=== PATIENT | male | born 1935 | race Caucasian/White ===

== ENCOUNTER 2016-06-19 08:38 | Observation (INO) | payer MEDICARE, OTHER ==
[~2016-06-19] VITALS: Ht 162.6 cm; Wt 76.5 kg
[2016-06-19] VITALS (13 sets, daily range): BP systolic 129–163; BP diastolic 62–125; PULSE 45–62; RESP 11–19; Ht 162.6 cm; Wt 76.5 kg
[~2016-06-19 08:38] MED LIST: AMLO5TAB4 PO; ASPI81TA3 PO; ATOR10TA65 PO; CLOP75TA27 PO; CORE20CR PO; EZET10TA3 PO; LOSA100T47 PO; UBIQ75CA PO
[2016-06-19] MEDS ORDERED: CORE10CR PO (09:31)
[2016-06-19] MEDS ORDERED: SOD CHLORIDE 0.9% 1,000 ML IV SCH ×2 (10:00→14:49)
[2016-06-19 10:17] LABS: ADD SCAN DIFF NO
[2016-06-19 10:24] LABS: BASOPHILS % 0.6 % (0.0-2.0); EOSINOPHILS # 0.1 10^3/ul (0.0-0.5); EOSINOPHILS % 1.8 % (0.0-7.0); HEMATOCRIT 41.5 % (42.0-52.0); HEMOGLOBIN 13.7 g/dl (14.0-18.0); LYMPHOCYTES # 1.6 10^3/ul (0.8-2.9); MEAN CORPUSCULAR HEMOGLOBIN 29.5 pg (29.0-33.0); MEAN CORPUSCULAR VOLUME 89.2 fl (82.0-101.0); MONOCYTE # 0.7 10^3/ul (0.3-0.9); MONOCYTES % 9.8 % (0.0-11.0); NEUTROPHIL # 4.6 10^3/ul (1.6-7.5); NEUTROPHILS % 64.5 % (39.0-77.0); PLATELET COUNT 178 10^3/UL (140-415); RED BLOOD COUNT 4.65 10^6/ul (4.70-6.10); RED CELL DISTRIBUTION WIDTH 13.2 % (11.5-14.5); WHITE BLOOD COUNT 7.1 10^3/ul (4.8-10.8)
[2016-06-19 10:29] LABS: ALBUMIN 4.1 g/dl (3.3-4.9)
[2016-06-19 10:32] LABS: ALBUMIN/GLOBULIN RATIO 1.17; BILIRUBIN,INDIRECT 0.2 mg/dl (0-1.1); BILIRUBIN,TOTAL 0.2 mg/dl (0.2-1.3); TOTAL PROTEIN 7.6 g/dl (6.1-8.1)
[2016-06-19 10:33] LABS: CHOL/HDL RATIO 2.1 RATIO
[2016-06-19 10:34] LABS: INR 1.02; PROTIME 13.4 Sec (12.2-14.2)
[2016-06-19 10:35] LABS: CALCIUM 9.7 mg/dl (8.4-10.2); CREATININE 0.83 mg/dl (0.61-1.24); PARTIAL THROMBOPLASTIN TIME 26.5 Sec (25.0-35.0); POTASSIUM 4.1 mmol/L (3.5-5.1)
[2016-06-19] MEDS ORDERED: MIDAZOLAM 1 MG/ML 2 ML INJ ONE (12:14)
[2016-06-19] MEDS ORDERED: FENTAnyl 50 MCG/ML VIAL ONE ×2 (12:14→13:41)
[2016-06-19] MEDS ORDERED: IODIXANOL LOCM 100 ML BTL ONE ×3 (12:14→14:25)
[2016-06-19] MEDS ORDERED: LIDOCAINE 1% (MDV) 20 ML INJ ONE (12:14)
[2016-06-19] MEDS ORDERED: HEPARIN 1000 UNITS/ML 10 ML INJ ONE (12:25)
[2016-06-19] MEDS ORDERED: VERAPAMIL 5 MG INJ ONE (12:26)
[2016-06-19] MEDS ORDERED: NITROGLYCERIN (IC) 100 MCG/ML INJ ONE ×2 (12:26→13:57)
[2016-06-19] MEDS ORDERED: ACETAMINOPHEN 325 MG TAB PO PRN (15:00)
--- NOTE | 2016-06-19 15:33 | SP ---
DATE OF PROCEDURE: 06/19/2016 NAME OF PROCEDURE: 1. Complicated left heart catheterization, selective left coronary angiography. 2. Complicated but successful angioplasty of diagonal and the left anterior descending. 3. Percutaneous transluminal coronary angioplasty and stenting of the mid left circumflex artery as well as the distal circumflex artery and the posterolateral artery. SURGEON: Yousif Dudley MD INDICATIONS: An 81-year-old gentleman who was recommended to undergo diagnostic angiography for pre vention of chest pain and markedly abnormal stress test done in the office. FINDINGS: 1. Left main coronary artery is very short. It has about 20% stenosis. 2. Left anterior descending artery proximal stent is patent. Proximal to the stent, the ostium has about 20% stenosis. After that the stent, it has about 70% stenosis. After angioplasty, there was less than 30% stenosis left. The diagonal itself has about 95% stenosis ostially. After angioplas ty of this lesion, there was less than 30% stenosis left. 3. 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 It gives off to the posterolateral artery. At the mid level, it has about 80% and is a heavily calcified lesion. Distally the posterolateral artery has about 80% stenosis which was successfully stented, no significant stenosis. 4. 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 Angiogram was not done. LV systolic pressure is 143. LVEDP is ____. No signifi cant gradient across the aortic valve. Aortic pressure was 113/57. DESCRIPTION OF PROCEDURE: Written informed consent was discussed with the patient. The patient was put in supine position. Right and left radial area was prepped and draped in sterile fashion. Lef t radial area was anesthetized over ____. A 6-[place] sheath was inserted in left radial artery. Tr ied to advance the wire and it could not be advanced so angiogram of the radial artery shows very sm all insertion site. We decided to go through the femoral approach. Right groin area was anesthetiz ed with 1% lidocaine, mobilizing 6-[place] sheath which was placed in right femoral artery. Right fe moral angiogram was performed. JL4 catheter was advanced and engaged in the left main coronary jono ry. A JL4-1/2 nonselective was advanced and angiogram was obtained. Pigtail was advanced and engag ed in the left main. Hemodynamics recorded and we decided not to pursue the right coronary artery wh ich was previously known to be anomalous and codominant. I used multiple guiding catheters advanced and engaged to the left main coronary artery. Finally, was able to reach the left main coronary ar mireya with the use of a JL4 and 1/2 guide as a GuideLiner for extension of the guide and with great d ifficulty was advanced. BMW wire was used to cross the LAD. Another BMW wire used across into the diagonal and most of the ____was removed. A 2.25 balloon was advanced across the diagonal and infla noa. Angiogram was obtained. A plaque shift was also noticed in the LAD. The same balloon was use d and placed across the LAD multiple times and inflated. Intracoronary nitroglycerin was given. An giogram was obtained. It was decided not to stent this area because of the bifurcation of the lesio n. The wire was redirected throughout the distal left circumflex artery and proximal circumflex art shahla. The same 2.25 balloon was advanced, could not cross into the lesion and due to calcification i n the proximal. A 2.0 balloon used across into the distal circumflex and inflated. I tried to adv ance the stent, could not cross across it. The proximal portion was angioplastied more and a andrade wire was used with the addition of 2, I was able to advance a 2.25 x 20 mm and advance a 2.25 x 18 m m Resolute stent into the distal circumflex artery and posterolateral artery. The stent was deploye d at 12 atmospheres. Angiogram was obtained. Finally, the same balloon stent was used and the prox imal portion was angioplastied again. Calcification noted. Finally, I used a 2.5 x [address] ent drug-eluting stent in the proximal circumflex artery and deployed it at 16 atmospheres. Final a ngiogram was obtained which showed CRISTIAN 3 flow, no evidence of dissection, no significant residual s tenosis. Catheter and Glidewire were removed. Sheath to be removed once ACT is down. IMMEDIATE COMPLICATIONS: None. CONCLUSION: 1. Successful PTCA and stenting of the left circumflex artery. 2. Successful angioplasty of the LAD and diagonal. Dictated By: YOUSIF ALBRECHT/DEIDRA Conf#: [id number] [facility]#: [id number]
--- NOTE | 2016-06-19 20:30 | HP ---
DATE OF ADMISSION: 06/19/2016 CHIEF COMPLAINT: Chest pain. HISTORY OF PRESENT ILLNESS: This is an 81-year-old male with a past medical history of coronary art shahla disease, history of hypertension, dyslipidemia who [facility]. The patient was seen by his primary instructor traffic safety, Dr. Thanh canada, was having complaints of chest discomfort in outpatient setting. The patient underwent a noninv asive stress test which was abnormal. As a result, he underwent elective cardiac catheterization by Dr. Dudley. The patient had 2 stents placed in his left circumflex. The patient had no intraopera tive complications. No postoperative complications. The patient was transferred to intensive care unit for monitoring. Upon my evaluation of patient, at this time is currently stable. Denies chest pain, fevers, chills, nausea, vomiting. PAST MEDICAL HISTORY: History of hypertension, dyslipidemia, history of coronary artery disease. PAST SURGICAL HISTORY: Previous PCI. ALLERGIES: NO KNOWN DRUG ALLERGIES. FAMILY HISTORY: No family history of kidney disease, heart disease. SOCIAL HISTORY: Does not drink, smoke or do drugs. MEDICATIONS: The patient's medications have been reviewed. REVIEW OF SYSTEMS: Fourteen-point review of systems conducted. Pertinent positives stated in HPI, otherwise negative. PHYSICAL EXAMINATION: VITAL SIGNS: Blood pressure is 151/71, respirations 18, pulse 54, temperature 97.4. HEENT: Head is normocephalic. NECK: Supple. HEART: Bradycardic. LUNGS: Diminished breath sounds at the base. ABDOMEN: Soft, nontender to palpation. No rebound, guarding. EXTREMITIES: Negative for clubbing, cyanosis. No edema. DERMATOLOGIC: No rashes. MUSCULOSKELETAL: No joint effusions. NEUROLOGIC: No focal deficits. LABORATORY DATA: Sodium 144, potassium 4.1, BUN 13, creatinine 0.83. White count 7.1, hemoglobin 1 3.7, hematocrit 41.5, platelet count is 178. ASSESSMENT AND PLAN: 1. Coronary artery disease. The patient is status post percutaneous coronary intervention to the c ircumflex. The patient is status post angioplasty of left anterior descending. The patient is curr ently stable. Plan at this point is continue medical management with Plavix, Lipitor, Coreg, aspiri n, Cozaar. Will monitor in intensive care unit. Will follow up with Cardiology for their recommend ations. 2. Hypertension. Blood pressure currently elevated. Continue current blood pressure regimen of Co reg, Norvasc and Cozaar. Monitor closely. 3. Dyslipidemia. Continue statin therapy. 4. Gastrointestinal, deep venous thrombosis prophylaxis. Continue PPI, sequential leg squeezers. 5. Mild anemia. Continue to monitor hemoglobin and hematocrit levels. Please note I spent up to 25 minutes of [id number] time with the patient. The patient is FULL CODE. Dictated By: EMMA LAZARO DO NR/DEIDRA Conf#: [id number] DID#: [id number]
[2016-06-19] MEDS ORDERED: ATORVASTATIN 10 MG TAB PO SCH (21:00)
[2016-06-19] MEDS ORDERED: AMLODIPINE 5 MG TAB PO SCH (21:00)
[2016-06-20] VITALS (10 sets, daily range): BP systolic 112–142; BP diastolic 58–74; PULSE 55–67; RESP 11–17
[2016-06-20 05:51] LABS: ADD SCAN DIFF NO
[2016-06-20 06:09] LABS: POTASSIUM 3.9 mmol/L (3.5-5.1)
[2016-06-20 06:12] LABS: CALCIUM 9.4 mg/dl (8.4-10.2); CREATININE 0.78 mg/dl (0.61-1.24)
[2016-06-20 06:17] LABS: BASOPHILS % 0.5 % (0.0-2.0); EOSINOPHILS # 0.1 10^3/ul (0.0-0.5); EOSINOPHILS % 1.6 % (0.0-7.0); HEMATOCRIT 37.5 % (42.0-52.0); HEMOGLOBIN 12.4 g/dl (14.0-18.0); LYMPHOCYTES # 1.4 10^3/ul (0.8-2.9); LYMPHOCYTES % 16.4 % (15.0-51.0); MEAN CORPUSCULAR HEMOGLOBIN 29.2 pg (29.0-33.0); MEAN CORPUSCULAR HGB CONC 33.1 g/dl (32.0-37.0); MEAN CORPUSCULAR VOLUME 88.4 fl (82.0-101.0); MEAN PLATELET VOLUME 10.9 fl (7.4-10.4); MONOCYTE # 0.8 10^3/ul (0.3-0.9); MONOCYTES % 9.4 % (0.0-11.0); NEUTROPHIL # 6.2 10^3/ul (1.6-7.5); NEUTROPHILS % 71.9 % (39.0-77.0); PLATELET COUNT 176 10^3/UL (140-415); RED BLOOD COUNT 4.24 10^6/ul (4.70-6.10); RED CELL DISTRIBUTION WIDTH 13.2 % (11.5-14.5); WHITE BLOOD COUNT 8.7 10^3/ul (4.8-10.8)
[2016-06-20] MEDS ORDERED: ASPIRIN 81 MG TAB PO SCH (09:00)
[2016-06-20] MEDS ORDERED: CARvedilol (CR) 10 MG CAP PO SCH (09:00)
[2016-06-20] MEDS ORDERED: ASPIRIN (EC) 81 MG TAB PO SCH (09:00)
[2016-06-20] MEDS ORDERED: CLOPIDOGREL 75 MG TAB PO SCH (09:00)
[2016-06-20] MEDS ORDERED: LOSARTAN 50 MG TAB PO SCH (09:00)
[2016-06-20] MEDS ORDERED: PANTOPRAZOLE (EC) 40 MG TAB PO SCH (09:00)
--- NOTE | 2016-06-20 11:42 | PN ---
DATE: CARDIOLOGY FOLLOWUP SUBJECTIVE: No chest pain or pressure, no palpitation. No arm pain, no groin pain. The patient do es complain that he has been having some "heartburn after he takes his pills," which he had at home. The patient's heart rate has remained stable. Rhythm strip was reviewed, has been stable. MEDICATIONS: Reviewed. PHYSICAL EXAMINATION: VITAL SIGNS: Temperature 97.5, heart rate of 60, blood pressure 135/74, respiratory rate of 14, sat urating 97%. HEENT: Normocephalic, atraumatic. No acute distress. Pupils are equal and round. CARDIOVASCULAR: Regular rate and rhythm, systolic murmur grade I. PULMONARY: With no wheezes heard. GASTROINTESTINAL: Soft, nontender. EXTREMITIES: There is no significant lower extremity edema. VASCULAR: Right femoral artery with no hematoma, no bleeding. The left radial: No tenderness. Go od pulses. LABORATORY: Sodium 141, potassium 3.9, BUN of 11, creatinine 0.78, glucose of 123. WBC of 8.7, hem oglobin 12.4, platelets of 176. ASSESSMENT AND PLAN: 1. Coronary artery disease with angina. 2. Status post percutaneous coronary intervention of the left anterior descending and left circumfl ex artery. 3. Diffuse coronary artery disease, dyslipidemia, hypertension. 4. RECOMMENDATIONS: We will continue with the current cardiac care. We will add Protonix to his regim en as well. Discharge planning for today. Dictated By: YOUSIF ALBRECHT/DEIDRA Conf#: [id number] DID#: [id number]
--- NOTE | 2016-06-20 11:48 | DS ---
DATE OF ADMISSION: 06/19/2016 DATE OF DISCHARGE: 06/20/2016 HOSPITAL COURSE: This is an 81-year-old male with a past medical history of coronary artery disease , hypertension, dyslipidemia, previous history of PCI and stent placement who presented to [facility] to undergo elective cardiac catheterization. The patient was experiencing outpa tient chest pain had abnormal stress test. He underwent an elective cardiac catheterization and had a PCI with stent placed in the circumflex. Following procedure, the patient was in the intensive care unit overnight where he was clinically st able. He had no complaints of chest pain, fevers, chills, nausea, vomiting. The patient did experi ence some acid reflux which is controlled with a PPI. Currently, at this time, the patient will be discharged home where he will follow up with his primary care physician and computer systems architect in 1 week's time. FINAL DIAGNOSES: 1. Coronary artery disease, status post percutaneous coronary intervention to circumflex. 2. Hypertension. 3 Dyslipidemia. 4. Gastroesophageal reflux disease. 5. Mild anemia. FINAL MEDICATIONS: Please see the direct reconciliation list. CONDITION ON DISCHARGE: At time of discharge, the patient is stable, in no acute distress. Dictated By: EMMA HAMM/DEIDRA Conf#: [id number] DID#: [id number]
== END 2016-06-20 08:33 | disposition home or self-care (01) ==
LOC: SDS 08:38 → ICU 14:53
PROVIDERS: ADMIT Internal Medicine Interventional Cardiology; ATTEND Internal Medicine Interventional Cardiology
DX: I25.10 Atherosclerotic heart disease of native coronary artery without angina pectoris (principal); R94.39 Abnormal result of other cardiovascular function study; I10 Essential (primary) hypertension; E78.5 Hyperlipidemia, unspecified; K21.9 Gastro-esophageal reflux disease without esophagitis; D64.9 Anemia, unspecified
CPT/HCPCS: 80048; 80053; 80061; 82550; 82553; 84484; 85025; 85610; 85730; 87081; 93458; 96360; 96361; C1725; C1769; C1874; C1887; C1894; C9600; G0378; J1644; J2250; J3010; Q9967; 99217

== ENCOUNTER 2017-02-26 06:20 | Day surgery (SDC) | END 2017-02-26 14:50 | disposition home or self-care (01) | DX: R07.9 Chest pain, unspecified (principal) | CPT/HCPCS: 80053; 80061; 82550; 82553; 82962; 84484; 85025; 85610; 85730; 93458; C1760; C1887; C1894; J1644; J2250; J3010; J7040; Q9967 ==

== ENCOUNTER 2017-04-29 18:28 | Inpatient (IN) | END 2017-05-01 17:00 | disposition home or self-care (01) | DRG 39 ==